=== PATIENT | male | born 1970 | race Caucasian/White ===

== ENCOUNTER 2023-10-31 16:46 | Emergency (ER) | payer BC ==
[2023-10-31 17:07] VITALS: RESP 17; TEMP 98.8; BMI 29.0
[2023-10-31 17:15] VITALS: BP 127/82; PULSE 80
[2023-10-31] MEDS ORDERED: FAMOTIDINE 20 MG/50 ML IVPB 20 MG/50 ML MG IVPB ONE (17:39)
[2023-10-31] MEDS ORDERED: DEXAMETHASONE SOD PHOSPHATE 4 MG/1 ML VIAL ONE (17:39)
[2023-10-31] MEDS: FAMOTIDINE 20 MG/50 ML IVPB 20 MG/50 ML MG IVPB ONE (17:51)
[2023-10-31] MEDS: SODIUM CHLORIDE 0.9% 500 ML INFUS.BAG IV ONE (17:51)
[2023-10-31] MEDS: DEXAMETHASONE SOD PHOSPHATE 4 MG/1 ML VIAL IVPUSH ONE (17:51)
[2023-10-31 17:55] LABS: HEMATOCRIT 52.6 % (35.4-49); HEMOGLOBIN 17.5 G/dL (11.7-16.9); MCH 29.7 pg (25.7-33.7); MCHC 33.3 g/dl (32.0-35.9); MEAN CELL VOLUME 89.3 fl (80-96); MEAN PLT VOLUME 8.1 fl (7.5-11.1); PLATELET COUNT 196.1 10^3/uL (134-434); RBC 5.89 10^6/uL (4.00-5.60); RDW 13.8 % (11.9-15.9); WHITE BLOOD COUNT 8.2 10^3/uL (4.0-10.8)
[2023-10-31 18:20] LABS: BILIRUBIN,TOTAL 0.5 mg/dl (0.2-1); CALCIUM 9.8 mg/dl (8.5-10.1); CREATININE 1.1 mg/dl (0.6-1.3); MAGNESIUM 2.2 mg/dL (1.8-2.4); POTASSIUM 3.8 mmol/L (3.5-5.1); TOT PROT 7.3 g/dl (6.4-8.2)
[2023-10-31 18:28] LABS: INR 0.97 (0.83-1.09); PROTHROMBIN TIME (PATIENT) 11.3 SEC (9.7-13.0)
== END 2023-10-31 19:14 | disposition home or self-care (01) ==
LOC: FER 16:46
PROC: 3E033GC Introduction of Other Therapeutic Substance into Peripheral Vein, Percutaneous Approach (ICD-10-PCS; principal; 2023-10-31)
PROC: 3E030GC Introduction of Other Therapeutic Substance into Peripheral Vein, Open Approach (ICD-10-PCS; 2023-10-31)
PROC: 3E030GC Introduction of Other Therapeutic Substance into Peripheral Vein, Open Approach (ICD-10-PCS; 2023-10-31)
DX: R42 Dizziness and giddiness (principal); Z91.018 Allergy to other foods
CPT/HCPCS: 36415; 80053; 83735; 84484; 85025; 85610; 85730; 93005; 99284-25